=== PATIENT | female | born 1965 | race American Indian/Alaskan Native ===

== ENCOUNTER 2016-10-21 16:12 | Emergency (ER) | payer SELFPAY ==
[2016-10-21] MEDS ORDERED: TYLENOL ONE (16:16)
[2016-10-21] MEDS ORDERED: TYLENOL PO ONE (16:24)
[2016-10-21] MEDS ORDERED: TESSALON PERLES PO ONE (17:06)
[2016-10-21] MEDS ORDERED: ZOFRAN ODT PO ONE (17:06)
--- NOTE | 2016-10-21 17:11 | Emergency Department Report ---
- General Chief Complaint: Dyspnea/Respdistress Stated Complaint: ASTHMA/DIZZINESS/FATIGUE Time Seen by Provider: 10/21/16 16:33 Source: patient Mode of arrival: Ambulatory Limitations: No Limitations - History of Present Illness Initial Comments: 51-year-old female with a past medical history presents to the hospital complains of cough and fever 2 days. Cough is nonproductive. Intermittent wheezing shortness of breath reported. Patient reports pain to the middle of the chest is coughing intermittent tightness with wheezing episodes. Pain rated 8/10 in intensity. Positive nausea without actual vomiting, abdominal pain, or diarrhea. Patient denies known sick contacts. She did not receive a flu shot. She just flew here from [place] last week. She denies calf tenderness, edema, leg asymmetry,or pleuritic chest pain - Related Data Home Medications Medication Instructions Recorded Confirmed Last Taken Nebulizer [Aeroneb Go Nebuliser] 1 each MC Q6H PRN 10/21/16 10/21/16 Unknown Previous Rx's Medication Instructions Recorded Last Taken Type ALBUTEROL Inhaler [ProAir HFA 2 puff IH QID PRN #1 inhalation 10/21/16 Unknown Rx Inhaler] Azithromycin [Zithromax Z-SCARLETT] 1 dose PO DAILY 5 Days 10/21/16 Unknown Rx Benzonatate [Tessalon Perles] 100 mg PO Q8HR #30 capsule 10/21/16 Unknown Rx Prednisone [predniSONE 10 mg 10 mg PO .TAPER #1 tab.ds.pk 10/21/16 Unknown Rx (6-Day Pack, 21 Tabs)] Pseudoephedrine [Sudafed] 60 mg PO BID PRN #20 tab 10/21/16 Unknown Rx Allergies Allergy/AdvReac Type Severity Reaction Status Date / Time hydrocodone bitartrate Allergy Itching Verified 10/21/16 16:21 [From Vicodin] ED Review of Systems ROS: Stated complaint: ASTHMA/DIZZINESS/FATIGUE Other details as noted in HPI Comment: All other systems reviewed and negative Other: Constitutional: As per HPI Eyes: No eye pain visual changes ENT: No ear pain or throat pain Neck: Denies pain Respiratory: As per HPI Cardiovascular: As per HPI GI: As per HPI : Denies dysuria Musculoskeletal: Denies back pain Skin: Denies rash, lesions, erythema Neurologic: Denies headache, numbness, weakness Psychiatric: Denies suicidal ideation, hallucinations ED Past Medical Hx - Medications Home Medications: Home Medications Medication Instructions Recorded Confirmed Last Taken Type ALBUTEROL Inhaler [ProAir HFA 2 puff IH QID PRN #1 inhalation 10/21/16 Unknown Rx Inhaler] Azithromycin [Zithromax Z-SCARLETT] 1 dose PO DAILY 5 Days 10/21/16 Unknown Rx Benzonatate [Tessalon Perles] 100 mg PO Q8HR #30 capsule 10/21/16 Unknown Rx Nebulizer [Aeroneb Go Nebuliser] 1 each MC Q6H PRN 10/21/16 10/21/16 Unknown History Prednisone [predniSONE 10 mg 10 mg PO .TAPER #1 tab.ds.pk 10/21/16 Unknown Rx (6-Day Pack, 21 Tabs)] Pseudoephedrine [Sudafed] 60 mg PO BID PRN #20 tab 10/21/16 Unknown Rx ED Physical Exam - General Limitations: No Limitations - Other Other exam information: General: No limitations, patient is alert in no acute distress Head exam: Atraumatic, normocephalic Eyes exam: Normal appearance, pupils equal reactive to light, extraocular movements intact ENT: Moist mucous membrane, normal oropharynx Neck exam: Normal inspection, full range of motion, no meningismus nontender Respiratory exam: Clear to auscultation bilateral, no wheezes, rales, crackles, frequent dry cough Cardiovascular: Normal rate and rhythm, normal heart sounds Abdomen: Soft, nondistended, and nontender, with normal bowel sounds, no rebound, or guarding Extremity: Full range of motion normal inspection no deformity, no calf tenderness or edema Back: Normal Inspection, full range of motion, no tenderness Neurologic: Alert, oriented x3, cranial nerves intact, no motor or sensory deficit Psychiatric: normal affect, normal mood Skin: Warm, dry, intact ED Course Vital Signs 10/21/16 10/21/16 10/21/16 16:21 17:07 17:10 Temperature 101.0 F H Pulse Rate 126 H 103 H 101 H Respiratory 20 15 16 Rate Blood Pressure 133/90 129/82 O2 Sat by Pulse 99 98 99 Oximetry 10/21/16 10/21/16 10/21/16 17:20 17:30 17:40 Temperature Pulse Rate 103 H 106 H 96 H Respiratory 14 16 Rate Blood Pressure 116/76 105/86 105/86 O2 Sat by Pulse 98 98 98 Oximetry 10/21/16 10/21/16 10/21/16 17:50 17:52 18:00 Temperature 100.4 F H Pulse Rate Respiratory Rate Blood Pressure 108/75 105/66 O2 Sat by Pulse 98 Oximetry 10/21/16 10/21/16 10/21/16 18:10 18:20 18:30 Temperature Pulse Rate Respiratory Rate Blood Pressure 105/66 105/66 111/65 O2 Sat by Pulse 97 98 Oximetry 10/21/16 18:47 Temperature 99.7 F H Pulse Rate Respiratory Rate Blood Pressure O2 Sat by Pulse Oximetry - Reevaluation(s) Reevaluation #1: 10/21/16 17:10 Sharad Almanza ED Medical Decision Making - Lab Data Result diagrams: 10/21/16 16:49 10/21/16 16:49 Lab Results 10/21/16 10/21/16 10/21/16 Range/Units 16:49 16:49 16:49 WBC 4.9 (4.5-11.0) K/mm3 RBC 4.62 (3.65-5.03) M/mm3 Hgb 13.4 (10.1-14.3) gm/dl Hct 39.4 (30.3-42.9) % MCV 85 (79-97) fl MCH 29 (28-32) pg MCHC 34 (30-34) % RDW 13.4 (13.2-15.2) % Plt Count 226 (140-440) K/mm3 Lymph % (Auto) 24.6 (13.4-35.0) % [place] % (Auto) 12.0 H (0.0-7.3) % Eos % (Auto) 2.4 (0.0-4.3) % Baso % (Auto) 0.5 (0.0-1.8) % Lymph # 1.2 (1.2-5.4) K/mm3 [place] # 0.6 (0.0-0.8) K/mm3 Eos # 0.1 (0.0-0.4) K/mm3 Baso # 0.0 (0.0-0.1) K/mm3 Seg Neutrophils % 60.5 (40.0-70.0) % Seg Neutrophils # 3.0 (1.8-7.7) K/mm3 PT 14.8 (12.2-14.9) Sec. INR 1.17 H (0.87-1.13) Sodium 137 (137-145) mmol/L Potassium 3.9 (3.6-5.0) mmol/L Chloride 99.4 (98-107) mmol/L Carbon Dioxide 20 L (22-30) mmol/L Anion Gap 22 mmol/L BUN 4 L (7-17) mg/dL Creatinine 0.9 (0.7-1.2) mg/dL Estimated GFR > 60 ml/min BUN/Creatinine Ratio 4.44 % Glucose 97 (65-100) mg/dL Calcium 9.1 (8.4-10.2) mg/dL Troponin T < 0.010 (0.00-0.029) ng/mL - EKG Data -: EKG Interpreted by Me (sinus tachycardia rate [address] elevations or T- wave inversions) - EKG Data When compared to previous EKG there are: previous EKG unavailable - Radiology Data Radiology results: image reviewed (cxr: naf) - Medical Decision Making Patient be discharged home with medication for her symptoms. She will be Treated with antibiotics for acute bronchitis - Differential Diagnosis bronchitis, pneumonia, influenza, viral syndrome Critical Care Time: No Critical care attestation.: If time is entered above; I have spent that time in minutes in the direct care of this critically ill patient, excluding procedure time. ED Disposition Clinical Impression: Acute bronchitis Disposition: DISCHARGED TO HOME OR SELFCARE Is pt being admited?: No Condition: Stable Instructions: Acute Bronchitis (ED) Additional Instructions: Take the medication as prescribed. Return if symptoms worsen. Take Motrin or Tylenol if needed for fever. Prescriptions: ALBUTEROL Inhaler [ProAir HFA Inhaler] 2 puff IH QID PRN #1 inhalation PRN Reason: Shortness Of Breath Azithromycin [Zithromax Z-SCARLETT] 1 dose PO DAILY 5 Days Benzonatate [Tessalon Perles] 100 mg PO Q8HR #30 capsule Prednisone [predniSONE 10 mg (6-Day Pack, 21 Tabs)] 10 mg PO .TAPER #1 tab.ds.pk Pseudoephedrine [Sudafed] 60 mg PO BID PRN #20 tab PRN Reason: Nasal Congestion Referrals: [facility] [Provider Group] - 3-5 Days RICKY MISTRY MD [Staff Physician] - 3-5 Days Time of Disposition: 19:16
[2016-10-21 17:13] LABS: Basophils % (Auto) 0.5 % (0.0-1.8); Eosinophils % (Auto) 2.4 % (0.0-4.3); Hematocrit 39.4 % (30.3-42.9); Hemoglobin 13.4 gm/dl (10.1-14.3); Mean Corpuscular HGB Conc 34 % (30-34); Mean Corpuscular Hemoglobin 29 pg (28-32); Mean Corpuscular Volume 85 fl (79-97); Platelet Count 226 K/mm3 (140-440); Red Blood Count 4.62 M/mm3 (3.65-5.03); Red Cell Distribution Width 13.4 % (13.2-15.2); White Blood Count 4.9 K/mm3 (4.5-11.0)
[2016-10-21 17:25] LABS: INR 1.17 (0.87-1.13)
[2016-10-21 17:27] LABS: Anion Gap 22 mmol/L; BUN/Creatinine Ratio 4.44; Blood Urea Nitrogen 4 mg/dL (7-17); Calcium 9.1 mg/dL (8.4-10.2); Carbon Dioxide 20 mmol/L (22-30); Chloride 99.4 mmol/L (98-107); Glucose 97 mg/dL (65-100); Potassium 3.9 mmol/L (3.6-5.0); Sodium 137 mmol/L (137-145)
[2016-10-21 19:35] VITALS: BP 123/86
--- NOTE | 2016-10-22 10:33 | XRay Report ---
CHEST 2 VIEWS: HISTORY: Shortness of breath. FINDINGS: Normal cardiomediastinal silhouette. Trachea is midline. No consolidation, pneumothorax or pleural effusion. IMPRESSION: No acute cardiopulmonary findings.
== END 2016-10-21 19:40 | disposition home or self-care (01) ==
LOC: ED 16:12
DX: J20.9 Acute bronchitis, unspecified (principal); R50.9 Fever, unspecified; R07.89 Other chest pain; Z88.5 Allergy status to narcotic agent
CPT/HCPCS: 36415; 71020; 80048; 84484; 85025; 85610; 87040; 93005; 93010; Q0162